=== PATIENT | male | born 1995 | race Caucasian/White ===

== ENCOUNTER 2019-06-20 00:39 | Emergency (ER) | payer BC, OTHER ==
[~2019-06-20] VITALS: Ht 167 cm; Wt 61.0 kg
[2019-06-20] MEDS ORDERED: LACTATED RINGERS 1,000 ML IV ONE ×2 (01:05→01:58)
[2019-06-20 01:14] LABS: BASOPHILS % (AUTO) 0 % (0-10); EOSINOPHILS # (AUTO) 0.3 10^3/uL (0.0-0.3); EOSINOPHILS % (AUTO) 3 % (0-10); HEMATOCRIT 46 % (40-54); HEMOGLOBIN 16.3 G/DL (13.3-17.7); LYMPHOCYTES # (AUTO) 3.7 X 10^3 (1.0-4.0); LYMPHOCYTES % (AUTO) 35 % (12-44); MEAN CORPUSCULAR HEMOGLOBIN 30 PG (25-34); MEAN CORPUSCULAR HGB CONC 36 G/DL (32-36); MEAN CORPUSCULAR VOLUME 83 FL (80-99); MEAN PLATELET VOLUME 9.5 FL (7.4-10.4); MONOCYTES # (AUTO) 1.2 X 10^3 (0.0-1.0); MONOCYTES % (AUTO) 11 % (0-12); NEUTROPHILS # (AUTO) 5.3 X 10^3 (1.8-7.8); NEUTROPHILS % (AUTO) 51 % (42-75); PLATELET COUNT 339 10^3/uL (130-400); RED CELL DISTRIBUTION WIDTH 12.9 % (10.0-14.5); WHITE BLOOD COUNT 10.4 10^3/uL (4.3-11.0)
[2019-06-20] MEDS ORDERED: HYOSCYAMINE 0.125 MG (LEVSIN) TAB SL ONE (01:15)
[2019-06-20] MEDS ORDERED: ONDANSETRON 4 MG/2 ML (SDV) Z0FRAN IVP ONE ×2 (01:15→02:00)
[2019-06-20 01:16] LABS: BILIRUBIN,URINE NEGATIVE (NEGATIVE); CLARITY,URINE CLEAR; COLOR,URINE YELLOW; GLUCOSE, URINE (UA) NEGATIVE (NEGATIVE); KETONES,URINE NEGATIVE (NEGATIVE); LEUKOCYTE ESTERASE ,URINE NEGATIVE (NEGATIVE); NITRITE,URINE NEGATIVE (NEGATIVE); PH,URINE 7 (5-9); PROTEIN,URINE NEGATIVE (NEGATIVE); UROBILINOGEN,URINE NORMAL (NORMAL)
[2019-06-20 01:24] LABS: BACTERIA,URINE TRACE /HPF; SQUAMOUS EPITHELIAL CELL,UR RARE /HPF; WBC,URINE RARE /HPF
[2019-06-20 01:35] LABS: ALANINE AMINOTRANSFERASE 14 U/L (0-55); ALBUMIN 4.8 GM/DL (3.2-4.5); ALKALINE PHOSPHATASE 75 U/L (40-136); AMYLASE 52 U/L (25-125); BILIRUBIN,TOTAL 0.5 MG/DL (0.1-1.0); BUN/CREATININE RATIO 13; CALCIUM 10.2 MG/DL (8.5-10.1); CARBON DIOXIDE 25 MMOL/L (21-32); CHLORIDE 105 MMOL/L (98-107); CREATININE SERUM 1.11 MG/DL (0.60-1.30); GFR ESTIMATED > 60; GLUCOSE 98 MG/DL (70-105); LIPASE 34 U/L (8-78); MAGNESIUM 2.1 MG/DL (1.6-2.4); POTASSIUM 3.6 MMOL/L (3.6-5.0); SODIUM 143 MMOL/L (135-145); TOTAL PROTEIN 7.8 GM/DL (6.4-8.2)
[2019-06-20 01:35] LABS: AMPHETAMINE SCREEN, URINE POSITIVE (NEGATIVE); BARBITURATE SCREEN URINE NEGATIVE (NEGATIVE); BENZODIAZEPINES SCREEN URINE NEGATIVE (NEGATIVE); CANNABINOID SCREEN, URINE POSITIVE (NEGATIVE); COCAINE SCREEN URINE NEGATIVE (NEGATIVE); METHADONE STAT NEGATIVE (NEGATIVE); METHAMPHETAMINE SCREEN URINE S NEGATIVE (NEGATIVE); OPIATE SCREEN URINE NEGATIVE (NEGATIVE); OXYCODONE STAT NEGATIVE (NEGATIVE); PROPOXYPHENE STAT NEGATIVE (NEGATIVE); TRICYCLIC ANTIDEPRESSANTS SCRE NEGATIVE (NEGATIVE)
[2019-06-20 01:48] LABS: ACETAMINOPHEN < 10 UG/ML (10-30)
[2019-06-20] MEDS ORDERED: ONDA4TAB11 PO (02:47)
[2019-06-20] MEDS ORDERED: HYOS0.1283 SL (02:47)
--- NOTE | 2019-06-20 02:47 | ED GI ---
General Chief Complaint: General Problems/Pain Stated Complaint: VOMITING, CONSTIPATED, PROBLEMS URINATING Nursing Triage Note: Pt ambulates to [facility] 6 with C/O back pain, N/V/D and dizziness x 3 days. Sepsis Screen: No Definite Risk Allergies and Home Medications Allergies Coded Allergies: No Known Drug Allergies (Unverified , 06/20/19) Past Fhjcnsp-Hkllsr-Sqhmim Hx Patient Social History Alcohol Use: Rarely Uses Recreational Drug Use: No Smoking Status: Current Someday Smoker Type Used: Cigarettes 2nd Hand Smoke Exposure: No Recent Foreign Travel: No Contact w/Someone Who Travel: No Recent Infectious Disease Expo: No Recent Hopitalizations: No Physical Abuse: No Sexual Abuse: No Mistreated: No Fear: No Seasonal Allergies Seasonal Allergies: No Past Medical History Surgeries: No Respiratory: No Cardiac: No Neurological: No Genitourinary: No Gastrointestinal: No Musculoskeletal: No Endocrine: No HEENT: No Cancer: No Psychosocial: Yes ADD/ADHD Integumentary: No Physical Exam Vital Signs Vital Signs - First Documented 06/20/19 00:59 Temp 35.8 Pulse 61 Resp 19 B/P (MAP) 137/60 (85) Pulse Ox 100 O2 Delivery Room Air Capillary Refill : Less Than 3 Seconds Height/Weight/BMI Height: '" Weight: lbs. oz. kg; 21.00 BMI Method: Progress/Results/Core Measures Results/Orders Lab Results Laboratory Tests Test 06/20/19 01:09 06/20/19 01:11 Range/Units White Blood Count 10.4 4.3-11.0 10^3/uL Red Blood Count 5.51 4.35-5.85 10^6/uL Hemoglobin 16.3 13.3-17.7 G/DL Hematocrit 46 40-54 % Mean Corpuscular Volume 83 80-99 FL Mean Corpuscular Hemoglobin 30 25-34 PG Mean Corpuscular Hemoglobin Concent 36 32-36 G/DL Red Cell Distribution Width 12.9 10.0-14.5 % Platelet Count 339 130-400 10^3/uL Mean Platelet Volume 9.5 7.4-10.4 FL Neutrophils (%) (Auto) 51 42-75 % Lymphocytes (%) (Auto) 35 12-44 % Monocytes (%) (Auto) 11 0-12 % Eosinophils (%) (Auto) 3 0-10 % Basophils (%) (Auto) 0 0-10 % Neutrophils # (Auto) 5.3 1.8-7.8 X 10^3 Lymphocytes # (Auto) 3.7 1.0-4.0 X 10^3 Monocytes # (Auto) 1.2 H 0.0-1.0 X 10^3 Eosinophils # (Auto) 0.3 0.0-0.3 10^3/uL Basophils # (Auto) 0.0 0.0-0.1 10^3/uL Sodium Level 143 135-145 MMOL/L Potassium Level 3.6 3.6-5.0 MMOL/L Chloride Level 105 98-107 MMOL/L Carbon Dioxide Level 25 21-32 MMOL/L Anion Gap 13 5-14 MMOL/L Blood Urea Nitrogen 14 7-18 MG/DL Creatinine 1.11 0.60-1.30 MG/DL Estimat Glomerular Filtration Rate > 60 BUN/Creatinine Ratio 13 Glucose Level 98 70-105 MG/DL Calcium Level 10.2 H 8.5-10.1 MG/DL Corrected Calcium 8.5-10.1 MG/DL Magnesium Level 2.1 1.6-2.4 MG/DL Total Bilirubin 0.5 0.1-1.0 MG/DL Aspartate Amino Transf (AST/SGOT) 20 5-34 U/L Alanine Aminotransferase (ALT/SGPT) 14 0-55 U/L Alkaline Phosphatase 75 40-136 U/L Total Protein 7.8 6.4-8.2 GM/DL Albumin 4.8 H 3.2-4.5 GM/DL Amylase Level 52 25-125 U/L Lipase 34 8-78 U/L Acetaminophen Level < 10 L 10-30 UG/ML Serum Alcohol < 10 <10 MG/DL Urine Color YELLOW Urine Clarity CLEAR Urine pH 7 5-9 Urine Specific David 1.010 L 1.016-1.022 Urine Protein NEGATIVE NEGATIVE Urine Glucose (UA) NEGATIVE NEGATIVE Urine Ketones NEGATIVE NEGATIVE Urine Nitrite NEGATIVE NEGATIVE Urine Bilirubin NEGATIVE NEGATIVE Urine Urobilinogen NORMAL NORMAL MG/DL Urine Leukocyte Esterase NEGATIVE NEGATIVE Urine RBC (Auto) NEGATIVE NEGATIVE Urine RBC NONE /HPF Urine WBC RARE /HPF Urine Squamous Epithelial Cells RARE /HPF Urine Crystals NONE /LPF Urine Bacteria TRACE /HPF Urine Casts NONE /LPF Urine Mucus NEGATIVE /LPF Urine Culture Indicated NO Urine Opiates Screen NEGATIVE NEGATIVE Urine Oxycodone Screen NEGATIVE NEGATIVE Urine Methadone Screen NEGATIVE NEGATIVE Urine Propoxyphene Screen NEGATIVE NEGATIVE Urine Barbiturates Screen NEGATIVE NEGATIVE Ur Tricyclic Antidepressants Screen NEGATIVE NEGATIVE Urine Phencyclidine Screen NEGATIVE NEGATIVE Urine Amphetamines Screen POSITIVE H NEGATIVE Urine Methamphetamines Screen NEGATIVE NEGATIVE Urine Benzodiazepines Screen NEGATIVE NEGATIVE Urine Cocaine Screen NEGATIVE NEGATIVE Urine Cannabinoids Screen POSITIVE H NEGATIVE My Orders Orders - JUAN CARLOS HENRIQUEZ DO Ed Iv/Invasive Line Start (06/20/19 01:05) Ct Abd/Pelvis Wo(Kidney Stone) (06/20/19 01:05) Acute Abd Series (06/20/19 01:05) Acetaminophen (06/20/19 01:05) Alcohol (06/20/19 01:05) Amylase (06/20/19 01:05) Cbc With Automated Diff (06/20/19 01:05) Comprehensive Metabolic Panel (06/20/19 01:05) Drug Screen Stat (Urine) (06/20/19 01:05) Lipase (06/20/19 01:05) Magnesium (06/20/19 01:05) Ua Culture If Indicated (06/20/19 01:05) Ondansetron Injection (Zofran Injectio (06/20/19 01:15) Hyoscyamine Sl Tablet (Levsin Sl Tablet) (06/20/19 01:15) Ed Iv/Invasive Line Start (06/20/19 01:05) Lactated Ringers (Lr 1000 Ml Iv Solution (06/20/19 01:05) Ondansetron Injection (Zofran Injectio (06/20/19 02:00) Ed Iv/Invasive Line Start (06/20/19 01:58) Lactated Ringers (Lr 1000 Ml Iv Solution (06/20/19 01:58) Medications Given in ED Current Medications Medications Dose Ordered Sig/Hyun Route Start Time Stop Time Status Last Admin Dose Admin Hyoscyamine Sulfate 0.25 mg ONCE ONCE SL 06/20/19 01:15 06/20/19 01:16 DC 06/20/19 01:16 0.25 MG Lactated Ringer's 1,000 ml @ 0 mls/hr Q0M ONCE IV 06/20/19 01:05 06/20/19 01:07 DC 06/20/19 01:16 0 MLS/HR Ondansetron HCl 4 mg ONCE ONCE IVP 06/20/19 01:15 06/20/19 01:16 DC 06/20/19 01:16 4 MG Vital Signs/I&O 06/20/19 00:59 Temp 35.8 Pulse 61 Resp 19 B/P (MAP) 137/60 (85) Pulse Ox 100 O2 Delivery Room Air Blood Pressure Mean: 85 Departure Impression Primary Impression: Gastroenteritis Additional Impressions: Marijuana use AMPHETAMINE USE Disposition: 01 HOME, SELF-CARE Condition: Improved Departure-Patient Inst. Referrals: NO,LOCAL PHYSICIAN (PCP) Primary Care Physician Patient Instructions: Drug Abuse and Drug Addiction (DC), DESEAN [id number] Add. Discharge Instructions: CLEAR LIQUIDS--WATER, BROTH, JELLO, GATORADE BRATS DIET--BANANAS, RICE, APPLESAUCE, TOAST, SALTINES NO DRUGS!! NO ALCOHOL!! FOLLOW UP WITH YOUR DR IN 2-3 DAYS IF NO BETTER All discharge instructions reviewed with patient and/or family. Voiced understanding. Scripts Ondansetron (Ondansetron Odt) 4 Mg Tab.rapdis 4 MG PO Q4H for Nausea/Vomiting, #10 TAB Prov: JUAN CARLOS HENRIQUEZ DO 06/20/19 Hyoscyamine Sulfate (Levsin-Sl) 0.125 Mg Tab.subl 1-2 TAB SL Q4H for Abdominal Pain, #10 TAB Prov: JUAN CARLOS HENRIQUEZ DO 06/20/19 JUAN CARLOS HENRIQUEZ DO Jun 20, 2019 02:47
[2019-06-20 03:52] VITALS: BP 117/67
--- NOTE | 2019-06-20 07:01 | Diagnostic Imaging Report ---
PROCEDURE: CT urinary tract, rule out kidney stone. TECHNIQUE: Multiple contiguous axial images were obtained through the abdomen and pelvis without the use of intravenous contrast. Auto Exposure Controls were utilized during the CT exam to meet ALARA standards for radiation dose reduction. INDICATION: Back pain with nausea and vomiting diarrhea and dizziness for 3 days. COMPARISON STUDY: None FINDINGS: The lung bases are clear. The liver, gallbladder, spleen, pancreas, adrenal glands and kidneys are normal. Increased stool is seen throughout the colon. Urinary bladder and prostate gland is normal. No ascites, free air or abnormal adenopathy is present. There are no hernias. No inflammation seen around the appendix. The osseous and vascular structures appear normal. IMPRESSION: Normal CT scan of the abdomen and pelvis. Findings agree with [facility] report. Dictated by: Dictated on workstation # [id number]
--- NOTE | 2019-06-20 07:04 | Diagnostic Imaging Report ---
INDICATION: Back pain with nausea, vomiting, dizziness and diarrhea for 3 days. FINDINGS: Upright view of the chest demonstrates lungs to be clear. The heart, mediastinum and pulmonary vascularity are normal. Supine and upright views of the abdomen demonstrates increased stool throughout the colon. Small bowel loops are little prominent. Osseous structures appear normal. There are no abnormal calcifications. No free air or fluid levels are present. IMPRESSION: There is a large amount of gas and stool in the colon. Dictated by: Dictated on workstation # [id number]
== END 2019-06-20 03:52 | disposition home or self-care (01) ==
LOC: ER 00:43 → EDBD 00:43 → ER 03:52
DX: K52.9 Noninfective gastroenteritis and colitis, unspecified (principal); F12.90 Cannabis use, unspecified, uncomplicated; F15.90 Other stimulant use, unspecified, uncomplicated; F90.9 Attention-deficit hyperactivity disorder, unspecified type; F17.210 Nicotine dependence, cigarettes, uncomplicated
CPT/HCPCS: 36415; 74022; 74176; 80053; 80306; 80320; 80329; 81000; 82150; 83690; 83735; 85025